=== PATIENT | female | born 1995 | race Two or more races ===

== ENCOUNTER 2021-05-10 13:57 | Emergency (ER) | payer SELFPAY ==
[2016-10-14 21:40] VITALS: BP 112/66
[~2021-05-10 13:57] MED LIST: CEPH500C PO; HYDR-3164 PO
== END 2021-05-10 14:08 | disposition left against medical advice (07) ==
LOC: ER 13:57
DX: R07.9 Chest pain, unspecified (principal); Z53.21 Procedure and treatment not carried out due to patient leaving prior to being seen by health care provider

== ENCOUNTER 2021-05-10 14:22 | Emergency (ER) | payer SELFPAY ==
[2016-10-14 21:40] VITALS: BP 112/66
== END 2021-05-10 15:17 | disposition left against medical advice (07) ==
LOC: ER 14:22
DX: Z53.21 Procedure and treatment not carried out due to patient leaving prior to being seen by health care provider (principal)